=== PATIENT | female | born 1970 | race Caucasian/White ===

== ENCOUNTER 2016-09-29 10:47 | Inpatient (IN) | payer OTHER ==
[~2016-09-29] VITALS: Ht 165.1 cm; Wt 115.0 kg
[2016-09-29 11:24] LABS: Basophils # (auto) 0 uL; Basophils % (auto) 0.4 % (0.0-2.0); Eosinophils # (auto) 0.4 uL; Hematocrit 40.9 % (36.0-46.0); Hemoglobin 13.7 g/dL (12.2-16.2); Lymphocytes # (auto) 1.8 uL; Lymphocytes % (auto) 18.5 % (10.0-50.0); Mean Corpuscular Hemoglobin 28.3 pg (28.0-32.0); Mean Corpuscular Hgb Conc. 33.4 g/dL (32.0-36.0); Mean Corpuscular Volume 84.9 fL (80.0-100.0); Mean Platelet Volume 8.9 fL (7.4-10.4); Monocytes # (auto) 0.5 uL; Neutrophils % (auto) 72.1 % (37.0-80.0); Platelet Count (auto) 288 10^3/uL (140-450); Red Cell Distribution Width 14.2 % (11.6-16.0); White Blood Cell 9.7 10^3/uL (4.4-10.8)
[2016-09-29 11:41] LABS: INR 0.95 (0.9-1.15); Partial Thromboplastin Time 27.6 sec (22.64-33.71); Prothrombin Time 10.3 sec (9.37-12.3)
[2016-09-29 11:46] LABS: Albumin 3.7 g/dL (3.4-5.0); Alkaline Phosphatase 99 U/L (45-117); Anion Gap 9 (5-15); Aspartate Aminotransferase 21 U/L (15-37); BUN/Creatinine Ratio 12.2; Bilirubin, Total 0.2 mg/dL (0.2-1.0); Blood Urea Nitrogen 12 mg/dL (7-18); Calcium 8.2 mg/dL (8.5-10.1); Carbon Dioxide 24 mmol/L (21-32); Chloride 106 mmol/L (98-107); GFR African American 79 mL/min; GFR Non-African American 65 mL/min; Glucose 93 mg/dL (74-106); Magnesium 2.6 mg/dL (1.6-2.6); Potassium 3.9 mmol/L (3.5-5.1); Sodium 139 mmol/L (136-145); Total Protein 7.6 g/dL (6.4-8.2)
[2016-09-29] MEDS ORDERED: MORPHINE SULF INJ 2 MG/ML SYRINGE 1ML IV ONE (15:00)
[2016-09-29] MEDS ORDERED: SODIUM CHLORIDE 0.9% 1,000 ML IV ONE (15:00)
[2016-09-29] MEDS ORDERED: LORazepam 2MG/ML-1ML VIAL IV ONE (15:00)
[2016-09-29] MEDS ORDERED: ONDANSETRON HCL 4 MG/2 ML VIAL IV ONE (15:00)
[2016-09-29] MEDS ORDERED: ACETAMINOPHEN 325 MG TAB PO ONE (16:00)
[2016-09-29] MEDS ORDERED: NITROGLYCERIN 0.4 MG SL TAB SL PRN (17:45)
[2016-09-29] MEDS ORDERED: TEMAZEPAM 15 MG CAP PO PRN (17:45)
[2016-09-29] MEDS ORDERED: LORazepam 0.5 MG TAB PO PRN (17:45)
[2016-09-29] MEDS ORDERED: MORPHINE SULF INJ 2 MG/ML SYRINGE 1ML IV PRN ×2 (17:45)
[2016-09-29] MEDS ORDERED: HYDROcodone-ACET 5/325MG TAB PO PRN (17:45)
[2016-09-29] MEDS ORDERED: ACETAMINOPHEN 500 MG TAB PO PRN (17:45)
[2016-09-29] MEDS ORDERED: PROCHLORPERAZINE EDISYLATE 5 MG/ML 2ML VIAL IV PRN (17:45)
[2016-09-29] MEDS ORDERED: LACTULOSE 20Gm/30ML SOLN PO PRN (17:45)
[2016-09-29] MEDS ORDERED: FURO20TA3 PO (18:20)
[2016-09-29] MEDS ORDERED: ASPI-498 PO (18:20)
[2016-09-29] MEDS ORDERED: ASPirin 81 mg TAB PO ONE (19:15)
[2016-09-29 19:19] LABS: Temperature: 23.3 C (20.0-25.0)
[2016-09-29] MEDS ORDERED: ENOXAPARIN SOD 40 MG/0.4 ML SYRINGE SC ONE (19:30)
[2016-09-29] MEDS: SODIUM CHLORIDE 0.9% 1,000 ML IV SCH (19:46)
[2016-09-29 21:51] LABS: Cholesterol 266 mg/dL (< 200); HDL Cholesterol 46 mg/dL (40-59); LDL Cholesterol 189 mg/dL (< 100); Triglycerides 202 mg/dL (< 150)
[2016-09-29] MEDS ORDERED: ATORVASTATIN 20 MG TAB PO SCH ×2 (22:00)
[2016-09-29 22:26] VITALS: BP 98/61
[2016-09-29] MEDS: METOPROLOL TARTRATE 25 MG TAB PO SCH (22:36)
[2016-09-29] MEDS: TOPIRAMATE 25 MG TAB PO SCH (22:37)
[2016-09-30 00:24] VITALS: BP 98/61
[2016-09-30] MEDS: SODIUM CHLORIDE 0.9% 1,000 ML IV SCH (02:42)
[2016-09-30 04:44] VITALS: BP 100/66
[2016-09-30 07:29] VITALS: BP 121/76
[2016-09-30 08:28] LABS: Cholesterol 256 mg/dL (< 200); HDL Cholesterol 42 mg/dL (40-59); LDL Cholesterol 182 mg/dL (< 100); Triglycerides 254 mg/dL (< 150)
[2016-09-30] MEDS: METOPROLOL TARTRATE 25 MG TAB PO SCH (09:49)
[2016-09-30] MEDS: TOPIRAMATE 25 MG TAB PO SCH (09:49)
[2016-09-30] MEDS ORDERED: ASPirin 81 mg TAB PO SCH (10:00)
[2016-09-30] MEDS ORDERED: NITROGLYCERIN 0.2MG/HR TOPICAL PATCH TD SCH (10:00)
[2016-09-30 12:03] VITALS: BP 128/73
[2016-09-30 12:12] VITALS: BP 121/76
[2016-09-30] MEDS ORDERED: ENOXAPARIN SOD 40 MG/0.4 ML SYRINGE SC SCH (17:00)
== END 2016-09-30 12:30 | disposition home or self-care (01) | DRG 103 ==
LOC: ER 10:53 → TELE 10:54 → TELE-CENTR 22:25
PROVIDERS: ADMIT Internal Medicine; ATTEND Internal Medicine
DX: G43.109 Migraine with aura, not intractable, without status migrainosus (principal); Z68.41 Body mass index [BMI] 40.0-44.9, adult; E66.9 Obesity, unspecified; F41.9 Anxiety disorder, unspecified; L94.9 Localized connective tissue disorder, unspecified
CPT/HCPCS: 36415; 70450; 71020; 80053; 80061; 82550; 82607; 82746; 83735; 84443; 84484; 85025; 85379; 85610; 85652; 85730; 86141; 93005; 95819; 96361; 96374; 99291; J2405